=== PATIENT | female | born 1940 | race Caucasian/White ===

== ENCOUNTER 2020-08-31 11:20 | Inpatient (IN) | payer MEDICARE, BC ==
[2020-08-31] MEDS ORDERED: Ketorolac Tromethamine 15 MG/ML VIAL ONE (11:49)
[2020-08-31] MEDS ORDERED: Morphine 2 MG/ML VIAL ONE (11:50)
[2020-08-31 12:14] LABS: #Eosinphils 0.1 10x3/uL (0.0-0.5); #Monocytes 1.1 10x3/uL (0.0-1.1); #Neutrophils 7.4 10x3/uL (1.5-8.4); %Basophils 0.4 % (0.0-2.0); %Eosinophils 0.9 % (0.0-6.0); %Lymphocytes 13.1 % (18.0-47.0); %Monocytes 11.4 % (0.0-10.0); %Neutrophils 73.9 % (40.0-75.0); Hemoglobin 13.9 g/dL (12.0-15.5); Mean Corpuscular HGB CONC 33.4 g/dL (32.0-36.0); Mean Corpuscular Volume 92.9 fl (81.6-98.3); Mean Platelet Volume 11.2 fl (7.4-10.4); Platelet Count 219 10x3/uL (150-450); RBC Distribution Width 12.9 % (11.5-14.5); Red Blood Cell (RBC) Count 4.48 10x6/uL (3.90-5.03)
[2020-08-31 12:46] LABS: ALT (SGPT) 8 U/L (8-55); AST (SGOT) 14 U/L (5-34); Albumin 3.9 g/dL (3.4-4.8); Alkaline Phosphatase 72 U/L (40-110); Anion Gap 14 mmol/L (10-20); BUN (Urea Nitrogen) 21 mg/dL (9.8-20.1); Bilirubin, Total 0.8 mg/dL (0.2-1.2); Calc. Creatinine Clearance 0 mL/min (70-130); Calcium 9.7 mg/dL (7.8-10.44); Carbon Dioxide 24 mmol/L (23-31); Chloride 107 mmol/L (98-107); Globulin 3.4 g/dL (2.4-3.5); Glucose 106 mg/dL (83-110); Lipase 29 U/L (8-78); Potassium 3.7 mmol/L (3.5-5.1); Protein, Total 7.3 g/dL (5.8-8.1); Sodium 141 mmol/L (136-145)
[2020-08-31 13:32] LABS: Bilirubin Neg (Negative); Blood, Urine Negative (Negative); Clarity Clear (Clear); Glucose, Urine (Dipstick) Normal (Negative); Ketone, Urine 150 mg/dL (Negative); Leukocyte Negative (Negative); Nitrite Negative (Negative); Protein, Urine (Dipstick) 15 mg/dl (Neg-Trace)
[2020-08-31] MEDS ORDERED: Senokot S 8.6-50 MG TAB PO PRN (16:38)
[2020-08-31] MEDS ORDERED: HYDROcodone/Acetaminophen 5/325 mg Tablet PO PRN (16:38)
[2020-08-31] MEDS ORDERED: Bisacodyl 5 MG TAB PO PRN (16:38)
[2020-08-31] MEDS ORDERED: Ondansetron PF 4 MG/2 ML Vial IVP PRN (16:38)
[2020-08-31] MEDS ORDERED: Bisacodyl 10 MG SUPP PR PRN (16:38)
[2020-08-31] MEDS ORDERED: Acetaminophen 325 MG TAB PO PRN (16:38)
[2020-08-31] MEDS ORDERED: Ondansetron ODT 4 MG TAB PO PRN (16:38)
[2020-08-31] MEDS ORDERED: Acetaminophen 650 MG Suppository PR PRN (16:38)
[2020-08-31] MEDS ORDERED: Ketorolac Tromethamine 30 MG/ML VIAL IVP PRN (17:00)
[2020-08-31 17:42] LABS: Cardiac Risk 3.7 (Less than 4.5)
[2020-08-31 18:16] VITALS: BMI 24.7
[2020-08-31 21:39] LABS: Hemoglobin A1c 5.1 % (4.0-6.0)
[2020-09-01 05:47] LABS: #Eosinphils 0.2 10x3/uL (0.0-0.5); #Monocytes 1.1 10x3/uL (0.0-1.1); #Neutrophils 6.4 10x3/uL (1.5-8.4); %Basophils 0.4 % (0.0-2.0); %Eosinophils 2.1 % (0.0-6.0); %Lymphocytes 14.4 % (18.0-47.0); %Monocytes 12.1 % (0.0-10.0); %Neutrophils 70.7 % (40.0-75.0); Hemoglobin 12.9 g/dL (12.0-15.5); Mean Corpuscular HGB CONC 32.6 g/dL (32.0-36.0); Mean Corpuscular Hemoglobin 30.9 pg (27.0-33.0); Mean Corpuscular Volume 94.7 fl (81.6-98.3); Mean Platelet Volume 11.1 fl (7.4-10.4); Platelet Count 188 10x3/uL (150-450); Red Blood Cell (RBC) Count 4.18 10x6/uL (3.90-5.03)
[2020-09-01 06:13] LABS: Anion Gap 13 mmol/L (10-20); BUN (Urea Nitrogen) 21 mg/dL (9.8-20.1); Calc. Creatinine Clearance 66 mL/min (70-130); Calcium 9.1 mg/dL (7.8-10.44); Carbon Dioxide 22 mmol/L (23-31); Chloride 110 mmol/L (98-107); Glucose 90 mg/dL (83-110); Potassium 3.8 mmol/L (3.5-5.1); Sodium 141 mmol/L (136-145)
[2020-09-01 15:31] LABS: SARS-CoV-2 PCR by NAA Not Detected (NotDetected)
[2020-09-03 15:20] VITALS: BP 123/76; TEMP 97.9
== END 2020-09-03 16:07 | DRG 552 ==
LOC: CSHERS 11:20 → CSHTELE 15:25 → UNDOADMOB 16:13 → CSHTELE 16:13 → OBSVTOIN 16:14 → INTOOBSV 16:14
PROVIDERS: ADMIT Family Medicine; ATTEND Family Medicine
DX: M54.5 Low back pain (principal); E86.0 Dehydration; Z20.822 Contact with and (suspected) exposure to COVID-19; W19.XXXA Unspecified fall, initial encounter; F03.90 Unspecified dementia, unspecified severity, without behavioral disturbance, psychotic disturbance, mood disturbance, and anxiety; R53.1 Weakness; Z74.01 Bed confinement status; R53.81 Other malaise; M79.10 Myalgia, unspecified site
CPT/HCPCS: 36415; 51701; 70450; 74177; 80048; 80053; 80061; 81003; 83036; 83605; 83690; 85025; 87635; 94760; 96374; 96375; J1885; J2270; U0003; U0005